=== PATIENT | female | born 1995 | race Two or more races ===

== ENCOUNTER 2024-10-12 14:59 | Emergency (ER) | payer OTHER ==
[~2024-10-12] VITALS: Ht 162.6 cm; Wt 104.5 kg
[2024-10-12] MEDS: LIDOCAINE 5% TRANSDERMAL PATCH TD ONE (15:50)
[2024-10-12] MEDS ORDERED: LIDO-57 TP (16:34)
[2024-10-12] MEDS ORDERED: ACET-3385 PO (16:34)
[2024-10-12 18:09] VITALS: BP 126/86; PULSE 95; RESP 16; TEMP 98.005280; O2SAT 99
== END 2024-10-12 18:12 | disposition home or self-care (01) ==
LOC: EMS 14:59
DX: S83.92XA Sprain of unspecified site of left knee, initial encounter (principal); M54.50 Low back pain, unspecified; J45.909 Unspecified asthma, uncomplicated; F12.90 Cannabis use, unspecified, uncomplicated; Z88.6 Allergy status to analgesic agent; Z88.0 Allergy status to penicillin; V43.52XA Car driver injured in collision with other type car in traffic accident, initial encounter; Y93.89 Activity, other specified; Y92.410 Unspecified street and highway as the place of occurrence of the external cause; Y99.8 Other external cause status
CPT/HCPCS: 99283